=== PATIENT | female | born 1975 | race Caucasian/White ===

== ENCOUNTER 2022-03-08 18:59 | Emergency (ER) | payer OTHER ==
[2022-03-08 19:27] VITALS: BP 154/94; RESP 18; TEMP 98.4; BMI 31.1
[2022-03-08] MEDS ORDERED: PSEUDOEPHEDRINE HCL 60 MG TABLET PO ONE (22:11)
[2022-03-08] MEDS ORDERED: PSEUDOEPHEDRINE HCL 60 MG TABLET ONE (22:14)
[2022-03-08 22:17] VITALS: PULSE 100
== END 2022-03-08 22:32 | disposition home or self-care (01) ==
LOC: JERFT 18:59
DX: H93.11 Tinnitus, right ear (principal)
CPT/HCPCS: 99283-25